=== PATIENT | male | born 1980 | race Caucasian/White ===

== ENCOUNTER 2017-04-28 18:01 | Emergency (ER) | payer OTHER ==
[~2017-04-28] VITALS: Ht 175.3 cm; Wt 74.8 kg
--- NOTE | ~2017-04-28 | CR106 ---
[facility] A Service of [facility] & [facility] RADIOLOGY TEXT RESULTS PATIENT: ALYSA WEBSTER LOCATION: CFTX : [birth year] UNIT #: [id number] AGE: [address]: KEVIN ANDERSON APRN SEX: M ORDER DR: [id number] [facility] [address] [place], [place] [address] [id number] E MR#: [id number] Acc #: [id number] NAME: ALYSA WEBSTER : 1980 SEX: M STUDY DATE/TIME: 04/28/2017 18:58 UNIT: CFTX ROOM: STUDY DESCRIPTION: CR Femur 2 Views Lt Attending Physician: Kevin Anderson Aprn Ordering Physician: Nimco Martin P.A.-C. Primary Care Physician: No Primary Care Physician MEDICAL IMAGING REPORT This report is preliminary unless electronic signature is present EXAM Left femur, AP and lateral. HISTORY Leg pain after jumping off a fence today. FINDINGS AP and lateral views of the femur show no evidence of fracture, bone destruction, or periosteal elevation. Adjacent soft tissue structures are normal. IMPRESSION Normal femur. Dictated by... Pieter Cervantes M.D. THIS IS AN ELECTRONICALLY VERIFIED REPORT Pieter Cervantes M.D. at 04/29/2017 11:52 PM DFL/brandi TD: 04/29/2017 10:04 JOB #: [id number] MEDICAL IMAGING REPORT Page 1 of 1 COPY
--- NOTE | ~2017-04-28 | CR169 ---
[facility] A Service of [facility] & [facility] RADIOLOGY TEXT RESULTS PATIENT: ALYSA WEBSTER LOCATION: CFTX : [birth year] UNIT #: [id number] AGE: [address]: KEVIN ANDERSON APRN SEX: M ORDER DR: [id number] [facility] [address] [place], [place] [address] [id number] E MR#: [id number] Acc #: [id number] NAME: ALYSA WEBSTER : 1980 SEX: M STUDY DATE/TIME: 04/28/2017 19:00 UNIT: CFCT ROOM: STUDY DESCRIPTION: CR Knee 2 Views Lt Attending Physician: Kevin Anderson Aprn Ordering Physician: Nimco Martin P.A.-C. Primary Care Physician: Primary Care Physician No MEDICAL IMAGING REPORT This report is preliminary unless electronic signature is present EXAM Left knee, 3 views. HISTORY Knee pain today after jumping off a fence. FINDINGS Three views of the knee shows smooth articular anatomy without indication of fracture or dislocation at the major weight-bearing surface of the knee. There is no indication of radiopaque foreign body about the knee surface or joint effusion. IMPRESSION Normal knee. Dictated by... Pieter Cervantes M.D. THIS IS AN ELECTRONICALLY VERIFIED REPORT Pieter Cervantes M.D. at 04/30/2017 11:33 PM DFL/brandi TD: 04/29/2017 10:05 JOB #: [id number] MEDICAL IMAGING REPORT Page 1 of 1 COPY
--- NOTE | ~2017-04-28 | CR243 ---
[facility] A Service of [facility] & [facility] RADIOLOGY TEXT RESULTS PATIENT: ALYSA WEBSTER LOCATION: CFTX : [birth year] UNIT #: [id number] AGE: [address]: KEVIN ANDERSON APRN SEX: M ORDER DR: [id number] [facility] [address]. [place], [place] [address] [id number] E MR#: [id number] Acc #: [id number] NAME: ALYSA WEBSTER : 1980 SEX: M STUDY DATE/TIME: 04/28/2017 18:57 UNIT: CFNY ROOM: STUDY DESCRIPTION: CR Thoracic Spine 3 Views Attending Physician: Kevin Anderson Aprn Ordering Physician: Nimco Martin P.A.-C. Primary Care Physician: No Primary Care Physician MEDICAL IMAGING REPORT This report is preliminary unless electronic signature is present EXAM Thoracic spine, 3 views. HISTORY Back pain today after jumping off a fence. FINDINGS Three-view examination of the dorsal segment shows normal mineralization and a satisfactory anatomical dorsal kyphosis. All body heights, interspaces, and posterior elements are normal anatomically without any indication of malignancy, trauma, unusual paraspinal soft tissue density mass, or congenital defect. IMPRESSION Normal thoracic spine. Dictated by... Pieter Cervantes M.D. THIS IS AN ELECTRONICALLY VERIFIED REPORT Pieter Cervantes M.D. at 04/29/2017 11:52 PM DFL/brandi TD: 04/29/2017 10:01 JOB #: [id number] MEDICAL IMAGING REPORT Page 1 of 1 COPY
--- NOTE | ~2017-04-28 | CR181 ---
[facility] A Service of [facility] & [facility] RADIOLOGY TEXT RESULTS PATIENT: ALYSA WEBSTER LOCATION: CFTX : 80 UNIT #: [id number] AGE: [address]: KEVIN ANDERSON APRN SEX: M ORDER DR: [id number] [facility] [address] [place], [place] [address] [id number] E MR#: [id number] Acc #: [id number] NAME: ALYSA WEBSTER : 1980 SEX: M STUDY DATE/TIME: 04/28/2017 18:58 UNIT: CFGA ROOM: STUDY DESCRIPTION: CR Lumbar Spine 2 or 3 Views Attending Physician: Kevin Anderson Aprn Ordering Physician: Nimco Martin P.A.-C. Primary Care Physician: No Primary Care Physician MEDICAL IMAGING REPORT This report is preliminary unless electronic signature is present EXAM Lumbar spine, 3 views. HISTORY Back pain after jumping off a fence today. FINDINGS Three projections of the lumbar segment show good mineralization of both anterior and posterior elements. They are all anatomically normal without indication of fracture, dislocation, or malignant change of a sclerotic or lytic type. There is no congenital defect noted. The sacroiliac joints are normal. IMPRESSION Normal lumbar spine. Dictated by... Pieter Cervantes M.D. THIS IS AN ELECTRONICALLY VERIFIED REPORT Pieter Cervantes M.D. at 04/29/2017 11:52 PM DFL/brandi TD: 04/29/2017 10:03 JOB #: [id number] MEDICAL IMAGING REPORT Page 1 of 1 COPY
[~2017-04-28 18:01] MED LIST: AMOXIL500 MG PO; METHADONE
== END 2017-04-28 20:55 | disposition home or self-care (01) ==
LOC: CED 18:01 → CFTX 18:01
DX: S33.5XXA Sprain of ligaments of lumbar spine, initial encounter (principal); S23.3XXA Sprain of ligaments of thoracic spine, initial encounter; S80.02XA Contusion of left knee, initial encounter; F17.200 Nicotine dependence, unspecified, uncomplicated; W19.XXXA Unspecified fall, initial encounter; Y93.39 Activity, other involving climbing, rappelling and jumping off
CPT/HCPCS: 72072; 72100; 73552; 73560; 96372; 99283; J1885